=== PATIENT | female | born 1990 | race Caucasian/White ===

== ENCOUNTER → 2022-12-17 16:26 | Outpatient (CLI) | payer OTHER, SELFPAY ==
--- NOTE | 2022-12-17 | DI.US.S_ITS ---
PROCEDURE: US OB >= 14 WEEKS FETUS INDICATIONS: ANATOMY OUTSIDE/PRIOR DATING DATA: Last menstrual period (LMP): 07/23/2022. LMP-based estimated date of delivery (TALIB): 04/29/2023. First dating scan (date and location): Not applicable Estimated date of delivery (TALIB) from first dating scan: Not applicable. The calculations are made using the clinical TALIB of 04/29/2023. TECHNIQUE: Real-time scanning was performed of the fetus, with image documentation and biometric measurements. Endovaginal scanning: None COMPARISON: None. FINDINGS: General: A single living intrauterine gestation is present. Presentation: Breech. Placenta: Placental position is anterior , without previa. Amniotic fluid index: 13.6 cm, normal range is 5-24 cm. Single deepest vertical pocket is 3.6 cm. heart rate: 144 beats per minute. Maternal cervical canal: 5.1 cm long. Normal lower limit is 2.5 cm. biometrics: Biparietal diameter: 5.1 cm, 21 week 3 day Head circumference: 19.2 cm, 21 week 3 day Abdominal circumference: 16.3 cm, 21 week 2 day Femur length: 3.5 cm, 21 week 1 day Clinically estimated gestational age: 21 week 0 day Composite gestational age from present scan: 21 week 2 day Estimated weight and percentile: 408 g, 57 percentile Anatomic survey: Neuro: Ventricles are non-dilated at less than 10 mm. Cisterna magna is normal at 3-11 mm. Cerebellum is normal in size and morphology. Nuchal skin fold: Normal at less than 6 mm between 14-21 weeks gestational age. Face: Nose and lips, facial profile are normal. Spine: No evidence for spina bifida. Heart: 4-chambered heart is present, with normal ventricular outflow tracts. Diaphragm: Diaphragm is intact. Stomach: Left-sided stomach is present. Kidneys: No hydronephrosis. Normal is less than 5 mm in 2nd trimester, less than 7 mm in 3rd trimester. Cord: 3-vessel cord has orthotopic insertion. Bladder: Normal in size. Extremities: All 4 extremities identified. IMPRESSION: Single live intrauterine consistent with a 21 week 2 day gestation by current ultrasound Normal anatomic survey Approved by: Owen Guerrier M.D. on 12/17/2022 at 18:04
== END ==
PROVIDERS: Referring Provider Midwife; Visit Provider Midwife
DX: Z34.82 Encounter for supervision of other normal pregnancy, second trimester (principal)
CPT/HCPCS: 76811